=== PATIENT | male | born 1965 | race Caucasian/White ===

== ENCOUNTER 2017-07-15 00:41 | Emergency (ER) | payer MEDICAID ==
--- NOTE | 2017-07-15 01:05 | ED Physician Chart ---
ED Chief Complaint/HPI - Patient Information Date Seen:: 07/15/17 Time Seen:: 00:45 Chief Complaint:: Subjective dyspnea. History of Present Illness:: Pt walked in this ER because he experienced subjective dyspnea last evening for about 4 hours. No definite chest pain. Pt now appears to be comfortable without dyspnea or physical distress. Pt is not fully cooperative because he just wants to sleep. Pt does not given consistent history. H & P are thus limited. Allergies:: Allergies Allergy/AdvReac Type Severity Reaction Status Date / Time No Known Allergies Allergy Verified 12/21/15 12:24 Vitals:: Vital Signs - 8 hr 07/15/17 00:51 Temp 97.3 F HR 88 RR 16 BP 128/72 O2 Sat % 98 Historian:: Patient Family MD/PCP:: Dr. Carvalho LMP:: N/A Review:: Nurse's Note Reviewed ED Review of Systems - Review of Systems General/Constitutional: No fever, Weight loss (?), No edema Skin: No skin lesions, No rash Head: No headache, No light-headedness Eyes: No loss of vision, No pain, No diplopia ENT: No nasal drainage, No sore throat Cardio Vascular: No chest pain, No palpitations, No PND, No orthopnea, No edema Pulmonary: SOB, No cough, No wheezing GI: No nausea, No vomiting, No pain G/U: No dysuria, No hematuria Musculoskeletal: No bone or joint pain Psychiatric: No prior psych history Hematopoietic: No bruising, No lymphadenopathy Neurological: No syncope, No focal symptoms, No headache, No confusion ED Past Medical History - Past Medical History Past Medical History: Dyslipidemia Family History: Diabetes Melitus (mother) Social History: Smoker (1 ppd. Pt has been informed about health risks associated with chronic tobacco use and has been advised to quit. Pt has been encouraged to enroll in a smoking cessation program. Pt acknowledges understanding.), Alcohol (occasional), No Drug Use, Single, Employed, Other ( lives with his girlfriend.) Employment:: online business. Surgical History: None Psychiatricy History: None Medication: Reviewed Family Medical History - Family Member Mother History Unknown: Yes ED Physical Exam - Physical Examination General/Constitutional: Awake, Well-developed, well-nourished (male), Alert, No distress, Non-toxic appearing, Ambulatory Other Gen/Cons comments:: Breathes comfortably, speaks clearly, and ambulates without difficulty. Head: Atraumatic Eyes: Lids, conjuctiva normal, PERRL, EOMI Skin: Nl inspection, No rash, No ecchymosis, Well hydrated, No lymphadenopathy ENMT: External ears, nose nl, Nasal exam nl, Oropharynx nl Neck: Nontender, Full ROM w/o pain, No JVD, No nuchal rigidity, No mass, No stridor Respiratory: Nl effort/Exclusion, Clear to Auscultation, No Wheeze/Rhonchi/Rales Cardio Vascular: RRR, No murmur, gallop, rubs GI: No tenderness/rebounding/guarding, No organomegaly, No hernia, Normal BS's, Nondistended, No mass/bruits, No McBurney tenderness Other GI comments:: Abdomen is soft. Extremities: No tenderness or effusion, No edema Neuro/Psych: Alert/oriented (oriented x 3), Normal gait, No focal deficits ED Labs/Radiology/EKG Results - Lab Results Results: Laboratory Tests 07/15/17 07/15/17 07/15/17 01:10 01:10 01:10 WBC 9.9 RBC 4.56 Hgb 13.8 Hct 40.4 L MCV 88.6 MCH 30.4 H MCHC Differential 34.3 RDW 14.2 Plt Count 349 MPV 6.9 Neutrophils % 64.8 Lymphocytes % 27.1 Monocytes % 3.5 Eosinophils % 1.0 Basophils % 3.6 H PT INR PTT (Actin FS) Sodium 137 Potassium 3.5 Chloride 106 Carbon Dioxide 22.1 Anion Gap 12.4 BUN 12 Creatinine 0.8 Est GFR ( Amer) > 60.0 Est GFR (Non-Af Amer) > 60.0 BUN/Creatinine Ratio 15.0 Glucose 89 Calcium 9.0 Total Bilirubin 0.3 AST 27 ALT 26 Alkaline Phosphatase 64 Creatine Kinase 264 H Troponin I < 0.01 L Total Protein 6.0 Albumin 3.8 L Globulin 2.2 Albumin/Globulin Ratio 1.7 07/15/17 01:10 WBC RBC Hgb Hct MCV MCH MCHC Differential RDW Plt Count MPV Neutrophils % Lymphocytes % Monocytes % Eosinophils % Basophils % PT 9.3 L INR 0.90 PTT (Actin FS) 26.3 Sodium Potassium Chloride Carbon Dioxide Anion Gap BUN Creatinine Est GFR ( Amer) Est GFR (Non-Af Amer) BUN/Creatinine Ratio Glucose Calcium Total Bilirubin AST ALT Alkaline Phosphatase Creatine Kinase Troponin I Total Protein Albumin Globulin Albumin/Globulin Ratio - Radiology Results Results: PCXR: Based on my interpretation, NAD. Official report is pending. - EKG Interpretations EKG Time:: 00:56 Rate & Rhythm: NSR with VR 81 Comments:: NSSTT changes. ED Septic Shock - . Is Septic Shock (SBP<90, OR Lactate>4 mmol\L) present?: No - <6hrs of presentation: Vital Signs: Vital Signs - 8 hr 07/15/17 00:51 Temp 97.3 F HR 88 RR 16 BP 128/72 O2 Sat % 98 ED Reassessment (Disposition) - Reassessment Reassessment:: 0210 Pt has been sleeping comfortably. No dyspnea, chest pain, or discomfort. Remaining lab results just became available. EKG, CXR, and lab results have been reviewed with pt. Pt requests to leave now and does not want further observation/management in hospital. Aftercare instructions have been given. Reassessment Condition:: Improved - Diagnosis Diagnosis:: Subjective dyspnea, resolved. No detectable acute medical emergency. - Aftercare/Follow up Instructions Aftercare/Follow-Up Instructions:: Refer to Discharge Instructions Notes:: Bed rest for today. Continue present care. F/U with PCP Dr. Carvalho at [facility] in one day. Return to ER immediately if condition worsens or if any further questions/problems. Medication Prescribed:: None - Patient Disposition Discharge/Transfer:: Home Time:: 14:15 Condition at Disposition:: Stable, Improved
[2017-07-15 01:21] LABS: BASOPHILE ABSOLUTE 0.4 Th/cumm (0-0.2); EOSINOPHILE ABSOLUTE 0.1 Th/cmm (0.1-0.4); LYMPHOCYTE ABSOLUTE 2.7 Th/cmm (1.5-3.0)
[2017-07-15 01:23] LABS: % BASOPHILS 3.6 % (0.0-2.0); % LYMPHOCYTES 27.1 % (20.0-50.0); % MONOCYTES 3.5 % (2.0-10.0); % NEUTROPHILS 64.8 % (40.0-80.0); HEMATOCRIT 40.4 % (41.0-60); HEMOGLOBIN 13.8 gm/dL (12-16); MEAN CELL VOLUME 88.6 fl (80-99); MEAN CORPUSCULAR HEMOGLOBIN 30.4 pg (26.0-30.0); MEAN CORPUSCULAR HGB CONC 34.3 pg (28.0-36.0); MEAN PLATELET VOLUME 6.9 fl; MONOCYTE ABSOLUTE 0.3 Th/cmm (0.3-1.0); NEUTROPHILE ABSOLUTE 6.4 Th/cmm (1.8-8.0); PLATELET COUNT 349 Th/cmm (150-400); RED BLOOD COUNT 4.56 Mil/cmm (4.30-5.70); RED CELL DISTRIBUTION WIDTH 14.2 % (11.5-20.0); WHITE BLOOD COUNT 9.9 Th/cmm (4.8-10.8)
[2017-07-15 01:33] LABS: INR 0.9 (0.5-1.4); PROTHROMBIN TIME (TEST) 9.3 SECONDS (9.5-11.5)
[2017-07-15 01:37] LABS: ALB/GLOB RATIO 1.7 (1.0-1.8); ALBUMIN 3.8 gm/dL (4.2-5.5); ALKALINE PHOSPHATASE 64 U/L (34-104); ANION GAP 12.4 (7.0-16.0); BILIRUBIN,TOTAL 0.3 mg/dL (0.3-1.0); BUN - UREA NITROGEN 12 mg/dL (7-25); CARBON DIOXIDE 22.1 mEq/L (21.0-31.0); CHLORIDE 106 mEq/L (98-107); CREATININE - SERUM 0.8 mg/dL (0.7-1.3); CREATININE KINASE 264 U/L (30-223); GFR AFRICAN-AMERICAN > 60.0 ml/min (>90); GFR NON AFRICAN-AMERICAN > 60.0 ml/min; GLUCOSE 89 mg/dL (70-105); POTASSIUM SERUM 3.5 mEq/L (3.5-5.1); SGOT 27 U/L (13-39); SGPT/ALT 26 U/L (7-52); SODIUM SERUM 137 mEq/L (136-145)
--- NOTE | 2017-07-15 07:33 | Diagnostic Imaging Report ---
Portable chest x-ray History: Pain Allowing for portable technique the heart size is normal. No focal pulmonary parenchymal processes. No hilar or mediastinal abnormalities. Impression: No acute abnormalities.
== END 2017-07-15 02:15 | disposition home or self-care (01) ==
LOC: ER 00:41
DX: R06.00 Dyspnea, unspecified (principal); E78.5 Hyperlipidemia, unspecified; F17.200 Nicotine dependence, unspecified, uncomplicated
CPT/HCPCS: 36415-UA; 71045-TC; 80053-TC; 82550-TC; 82553; 84484-TC; 85025-TC; 85610-TC; 93005